=== PATIENT | female | born 1990 | race American Indian/Alaskan Native ===

== ENCOUNTER 2016-06-26 08:07 | Emergency (ER) | payer MEDICAID ==
[2016-06-26 08:45] LABS: Basophils % (Auto) 0.8 % (0.0-1.8); Eosinophils % (Auto) 1.2 % (0.0-4.3); Hematocrit 35.4 % (30.3-42.9); Hemoglobin 11.7 gm/dl (10.1-14.3); Mean Corpuscular HGB Conc 33 % (30-34); Mean Corpuscular Hemoglobin 26 pg (28-32); Mean Corpuscular Volume 79 fl (79-97); Platelet Count 281 K/mm3 (140-440); Red Blood Count 4.47 M/mm3 (3.65-5.03); Red Cell Distribution Width 13.9 % (13.2-15.2); White Blood Count 7.1 K/mm3 (4.5-11.0)
[2016-06-26 09:06] LABS: Bilirubin,Urine NEG (Negative); Blood,Urine NEG (Negative); Ketones,Urine TR mg/dL (Negative); Leukocyte Esterase,Urine TR (Negative); Mucus,Urine 3+ /HPF; Nitrite,Urine NEG (Negative); Urobilinogen,Urine < 2.0 mg/dL (<2.0)
--- NOTE | 2016-06-26 12:58 | Ultrasound Report ---
ULTRASOUND OB LESS THAN 14 WEEKS - TRANSABDOMINAL AND TRANSVAGINAL INDICATION: , vaginal bleed. Serum beta-hCG 8590 units. COMPARISON: None similar during this gestation. FINDINGS: Transabdominal and transvaginal pelvic sonography performed in this patient with LMP of 05/11/2016 and estimated menstrual age of 6 weeks and 4 days. It demonstrates an anteverted, gravid uterus estimated at 10.7 x 6.7 x 6.4 cm with a single, viable intrauterine gestation with heart rate of 88 beats per minute. Mean gestational sac diameter of 1.46 cm corresponds to 6 weeks and 2 days. Mean crown-rump length of 0.34 cm corresponds to 6 weeks and zero days. A 1.3 x 1.1 cm hypoechoic lower uterine segment fibroid posteriorly noted on endovaginal image 16. Small yolk sac also seen. No significant free fluid. Cervix closed. Physiologic 3.1 x 2.5 x 3.1 cm right ovary with a 1.3 cm peripheral follicular cyst. Left ovary measures 3.3 x 1.9 x 2.1 cm with a 1.2 cm small possible hemorrhagic cyst/corpus luteum as on endovaginal image 29 and also a 0.7 cm echogenic focus, image 31, latter possibly fat or hemorrhage. CONCLUSION: 1. Single, live intrauterine gestation with an ultrasound estimated age of 6 weeks and 1 day and ISSA of 02/18/2017. 2. Other findings, including small uterine fibroid, as above. Thank you for the opportunity to participate in this patient's care.
--- NOTE | 2016-06-26 13:45 | Emergency Department Report ---
HPI - General Chief Complaint: Vaginal Bleeding Time Seen by Provider: 06/26/16 13:24 - HPI HPI: This is a 25-year-old Afro-Cypriot female who presents emergency Department with the complaint of some generalized abdominal pain and vaginal spotting. The abdominal pain started last night at about 2 AM. The vaginal spotting is been going on for the past week. The patient believes she is about 7 weeks' . With this she is with 4 live children. She goes to [facility] for her [employer] needs. She is not taking any vitamins. Otherwise she denies any past medical history. No recent travel or sick contacts at home. She denies any vaginal discharge, dysuria, fever or any excessive nausea or vomiting. She has not taken anything for her symptoms prior to presentation. ED Past Medical Hx - Past Medical History Previous Medical History?: Yes Hx Hypertension: No Hx Diabetes: No Hx Deep Vein Thrombosis: No Hx Renal Disease: No Hx Sickle Cell Disease: No Hx Seizures: No Hx Asthma: No Hx HIV: No Additional medical history: anemia, Vaginal delivery x 4 - Surgical History Past Surgical History?: No - Social History Smoking Status: Never Smoker Substance Use Type: Non Opiate Pain, Other - Medications Home Medications: Home Medications Medication Instructions Recorded Confirmed Last Taken Type HYDROcodone/APAP 5-325 [[place] 1 each PO Q8HR PRN #6 tablet 02/24/13 Unknown Rx 5-325 mg TAB] Sulfamethoxazole/Trimethoprim 1 each PO BID 3 Days 02/24/13 Unknown Rx [Bactrim Ds] Clotrimazole 1% [Lotrimin] 1 applic TP BID #1 tube 11/28/13 Unknown Rx HYDROcodone/APAP 5-325 [[place] 1 each PO Q6HR PRN #7 tablet 05/01/15 Unknown Rx 5/325] Nitrofurantoin [place]/M-Cryst 100 mg PO Q12HR #10 capsule 06/26/16 Unknown Rx [Macrobid CAP] Vit No.130/Iron/FA 1 each PO QDAY #30 tablet 06/26/16 Unknown Rx [ Tablet] ED Review of Systems ROS: Stated complaint: 7WKS/SPOTTING WITH BACK PAIN Other details as noted in HPI Comment: All other systems reviewed and negative Constitutional: denies: chills, fever Eyes: denies: eye pain, eye discharge, vision change ENT: denies: ear pain, throat pain Respiratory: denies: cough, shortness of breath, wheezing Cardiovascular: denies: chest pain, palpitations Gastrointestinal: abdominal pain. denies: nausea, vomiting Genitourinary: other (vaginal bleeding). denies: urgency, dysuria, discharge Musculoskeletal: denies: joint swelling, arthralgia Skin: denies: rash, lesions Neurological: denies: headache, weakness, paresthesias Physical Exam - Physical Exam Vital Signs: Vital Signs 06/26/16 08:21 Temperature 98.5 F Pulse Rate 92 H Respiratory 16 Rate Blood Pressure 114/74 O2 Sat by Pulse 100 Oximetry Physical Exam: GENERAL: The patient is well-developed well-nourished. HEENT: Normocephalic. Atraumatic. Extraocular motions are intact. Patient has moist mucous membranes. Pupils equal reactive to light bilaterally. NECK: Supple. Trachea is midline. CHEST/LUNGS: Clear to auscultation. There is no respiratory distress noted. HEART/CARDIOVASCULAR: Regular. There is no tachycardia. There is no gallop rub or murmur. ABDOMEN: Abdomen is soft. There is some tenderness palpation to the right upper quadrant and left lower quadrants of the abdomen. No guarding or rebound tenderness. Obese habitus. Patient has normal bowel sounds. There is no abdominal distention. SKIN: Skin is warm and dry. NEURO: The patient is awake, alert, and oriented. The patient is cooperative. The patient has no focal neurologic deficits. The patient has normal speech and gait. MUSCULOSKELETAL: There is no tenderness or deformity. There is no limitation range of motion. There is no evidence of acute injury. ED Course Vital Signs 06/26/16 08:21 Temperature 98.5 F Pulse Rate 92 H Respiratory 16 Rate Blood Pressure 114/74 O2 Sat by Pulse 100 Oximetry ED Medical Decision Making - Lab Data Result diagrams: 06/26/16 08:28 06/26/16 14:00 - Radiology Data Radiology results: report reviewed Transvaginal/OB ultrasound shows a live intrauterine at 6 weeks 1 day. There is also a small uterine fibroid. - Medical Decision Making 25-year-old female presents the emergency department with complaint of some abdominal pain starting late last night while and some mild vaginal spotting that has been going on for the last week. The patient had an ultrasound that shows her to have a live intrauterine as well as a small uterine fibroid. Patient's labs are mostly unremarkable. She had 11 white blood cells in the urine so she'll be treated for a very mild UTI as she is . Otherwise the patient appears to have a viable the with the spotting is a threatened miscarriage. We discussed pelvic rest and she was given multiple referrals for [employer]. She was started on vitamins. She will return to the emergency department with any worsening of the bleeding, sharp abdominal pain/cramping, or any acute distress. She understands and agrees to plan. - Differential Diagnosis , threatened miscarriage, spontaneous miscarriage, fibroid, UTI Critical Care Time: No Critical care attestation.: If time is entered above; I have spent that time in minutes in the direct care of this critically ill patient, excluding procedure time. ED Disposition Clinical Impression: Threatened miscarriage Qualifiers: Weeks of gestation: less than 8 weeks Qualified Code(s): Z3A.01 - Less than 8 weeks gestation of Abdominal pain Qualifiers: Abdominal location: generalized Qualified Code(s): R10.84 - Generalized abdominal pain UTI (urinary tract infection) Qualifiers: Urinary tract infection type: acute cystitis Hematuria presence: without hematuria Qualified Code(s): N30.00 - Acute cystitis without hematuria Disposition: DISCHARGED TO HOME OR SELFCARE Is pt being admited?: No Condition: Stable Instructions: Threatened Miscarriage (ED), (ED), Urinary Tract Infection in Women (ED), Abdominal Pain (ED) Additional Instructions: 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 Return to the emergency department with any worsening of her symptoms or any acute distress. He can take Tylenol every 4 hours, using weight-based dosing, as needed for fever or discomfort. Otherwise do not take any medications that are not prescribed by a physician. Prescriptions: Nitrofurantoin Wal[place]/M-Cryst [Macrobid CAP] 100 mg PO Q12HR #10 capsule Vit No.130/Iron/FA [ Tablet] 1 each PO QDAY #30 tablet Referrals: PRIMARY CARE [Primary Care Provider] - 3-5 Days [facility] [Provider Group] - 3-5 Days [facility] [Provider Group] - 3-5 Days [facility] [Provider Group] - 3-5 Days Time of Disposition: 14:55
[2016-06-26 14:47] LABS: Alanine Aminotransferase 11 units/L (7-56); Albumin 3.6 g/dL (3.9-5); Albumin/Globulin Ratio 1.1 %; Alkaline Phosphatase 74 units/L (35-129); Blood Urea Nitrogen 12 mg/dL (7-17); Calcium 8.7 mg/dL (8.4-10.2); Carbon Dioxide 24 mmol/L (22-30); Glucose 76 mg/dL (65-100); Lipase 21 units/L (13-60)
[2016-06-26 14:48] LABS: Anion Gap 15 mmol/L; Chloride 98.7 mmol/L (98-107); Potassium 4.1 mmol/L (3.6-5.0); Sodium 134 mmol/L (137-145)
[2016-06-26 15:14] VITALS: BP 116/73
== END 2016-06-26 15:18 | disposition home or self-care (01) ==
LOC: ED 08:07
DX: O20.0 Threatened abortion (principal); O23.11 Infections of bladder in pregnancy, first trimester; N30.00 Acute cystitis without hematuria; Z3A.01 Less than 8 weeks gestation of pregnancy
CPT/HCPCS: 36415; 76801; 76817; 80053; 81001; 83690; 84702; 85025; 86850; 86900; 86901

== ENCOUNTER 2017-04-29 21:02 | Outpatient (CLI) | payer MEDICAID ==
[2017-04-29] MEDS ORDERED: LACTATED RINGERS 500 ML IV ONE (21:12)
[2017-04-29 21:21] VITALS: BP 106/56
[2017-04-29 22:02] LABS: Bilirubin,Urine NEG (Negative); Blood,Urine NEG (Negative); Color,Urine Straw (Yellow); Protein,Urine <15 mg/dL mg/dL (Negative); Urobilinogen,Urine < 2.0 mg/dL (<2.0); WBC,Urine < 1.0 /HPF (0.0-6.0)
== END 2017-04-29 22:30 | disposition home or self-care (01) ==
LOC: TRG 21:02
PROVIDERS: ATTEND Obstetrics & Gynecology
DX: O26.892 Other specified pregnancy related conditions, second trimester (principal); R25.2 Cramp and spasm; Z3A.20 20 weeks gestation of pregnancy
CPT/HCPCS: 59025; 81001